=== PATIENT | male | born 1945 | race Caucasian/White ===

== ENCOUNTER 2020-06-08 18:38 | Inpatient (IN) | payer MEDICARE ==
[~2020-06-08] VITALS: Ht 170.2 cm; Wt 54.4 kg
[2020-06-08 19:23] LABS: BASOPHILS % (AUTO) 0.3 % (0.0-5.0); EOSINOPHILS % (AUTO) 0.2 % (0.0-8.0); HEMATOCRIT 37.6 % (42-54); LYMPHOCYTES % (AUTO) 4.5 % (21.0-51.0); MEAN CORPUSCULAR HEMOGLOBIN 29.4 pg (27.0-33.0); MEAN CORPUSCULAR HGB CONC 32.7 g/dL (32.0-36.0); MONOCYTES % (AUTO) 3.9 % (3.0-13.0); NEUTROPHILS % (AUTO) 90.7 % (40.0-77.0); PLATELET COUNT (AUTO) 317 K/uL (130-400); RED BLOOD CELL COUNT(AUTO) 4.18 MIL/uL (4.50-6.20); RED CELL DISTRIBUTION WIDTH 14.3 % (11.0-15.5); WHITE BLOOD COUNT (AUTO) 17.7 K/uL (4.8-10.8)
[2020-06-08] MEDS ORDERED: MORPHINE 2 MG SYG ONE ×2 (19:42→20:32)
[2020-06-08] MEDS ORDERED: ONDANSETRON 4MG INJ ONE ×2 (19:42→22:24)
[2020-06-08] MEDS ORDERED: 0.9% NACL 500ML IV.SOLN 500 ML IV ONE (19:43)
[2020-06-08 20:12] LABS: CREATININE 2.1 mg/dL (0.5-1.5); POTASSIUM 4.6 mmol/L (3.5-5.1)
[2020-06-08 20:17] LABS: ALBUMIN 3.4 g/dL (3.5-5.0); BILIRUBIN,TOTAL 0.5 mg/dL (0.2-1.0); TOTAL PROTEIN, SERUM 8.1 g/dL (6.0-8.3)
[2020-06-08] MEDS ORDERED: ZOSYN 3.375GM+NS 50ML 50 ML IV ONE (22:17)
[2020-06-08] MEDS ORDERED: METOCLOPRAMIDE 10 MG/2 ML VIAL ONE (22:32)
[2020-06-08] MEDS ORDERED: LORAZEPAM 2 MG/ML 1 ML VIAL ONE (22:50)
[2020-06-08] MEDS ORDERED: LIDOCAINE HCL 2% VISCOUS 15 ML UDCUP ONE (22:50)
[2020-06-09] MEDS ORDERED: MORPHINE 4 MG SYG IV PRN (01:00)
[2020-06-09] MEDS: METOPROLOL TARTRATE 1 MG/ML 5ML VIAL IV SCH ×4 (01:00→19:00)
[2020-06-09] MEDS: 0.9%NACL 1000ML 1,000 ML IV SCH ×4 (01:00→21:16)
[2020-06-09] MEDS ORDERED: MORPHINE 2 MG SYG IV PRN (01:00)
[2020-06-09 02:00] LABS: CRP QUANTITATIVE 15.2 mg/L (0.00-9.0)
[2020-06-09] MEDS ORDERED: METOCLOPRAMIDE 10 MG/2 ML VIAL ONE ×3 (05:21→19:28)
[2020-06-09] MEDS ORDERED: METOPROLOL TARTRATE 1 MG/ML 5ML VIAL IV ONE ×2 (05:21→12:38)
[2020-06-09 05:55] LABS: INR 0.98 (0.85-1.15); PROTHROMBIN TIME 10.7 SEC (9.6-11.6)
[2020-06-09 05:56] LABS: PARTIAL THROMBOPLASTIN TIME 25.7 SEC (26.3-35.5)
[2020-06-09] MEDS: METOCLOPRAMIDE 10 MG/2 ML VIAL IVP SCH ×3 (06:00→18:00)
[2020-06-09] MEDS: LEVOTHYROXINE 100MCG VIAL IV SCH (06:30)
[2020-06-09] MEDS: LUBIPROSTONE 24 MCG CAP PO SCH ×2 (08:00→17:00)
[2020-06-09] MEDS: FAMOTIDINE 20MG VIAL IV SCH (09:00)
[2020-06-09] MEDS: ENOXAPARIN SODIUM 30 MG/0.3 ML SQ SCH (09:00)
[2020-06-09] MEDS: ZOSYN 3.375GM+NS 50ML 50 ML IV SCH ×2 (09:00→21:16)
[2020-06-09] MEDS ORDERED: ZOSYN 3.375GM+NS 50ML 50 ML IV ONE (09:54)
[2020-06-09] MEDS ORDERED: ENOXAPARIN SODIUM 30 MG/0.3 ML SQ ONE (09:55)
[2020-06-09] MEDS ORDERED: FAMOTIDINE 20MG VIAL IV ONE (09:55)
[2020-06-09] MEDS ORDERED: MAGNESIUM CITRATE 296 ML SOLUTION ONE ×2 (11:40→18:07)
[2020-06-09] MEDS ORDERED: MORPHINE 2 MG SYG ONE ×2 (13:05→19:28)
[2020-06-09 19:50] VITALS: BP 168/87
[2020-06-09 23:31] VITALS: BP 118/68
[2020-06-10] MEDS: METOPROLOL TARTRATE 1 MG/ML 5ML VIAL IV SCH ×4 (00:37→17:28)
[2020-06-10] MEDS: METOCLOPRAMIDE 10 MG/2 ML VIAL IVP SCH ×4 (00:37→17:28)
[2020-06-10 04:00] VITALS: BP 117/62
[2020-06-10] MEDS: LEVOTHYROXINE 100MCG VIAL IV SCH (06:06)
[2020-06-10] MEDS: 0.9%NACL 1000ML 1,000 ML IV SCH (06:10)
[2020-06-10 06:54] LABS: HEMATOCRIT 29.1 % (42-54); MEAN CORPUSCULAR HEMOGLOBIN 29.7 pg (27.0-33.0); MEAN CORPUSCULAR HGB CONC 31.6 g/dL (32.0-36.0); MEAN CORPUSCULAR VOLUME 93.9 fL (79-99); PLATELET COUNT (AUTO) 219 K/uL (130-400); RED CELL DISTRIBUTION WIDTH 14.8 % (11.0-15.5); WHITE BLOOD COUNT (AUTO) 6.6 K/uL (4.8-10.8)
[2020-06-10 07:12] LABS: ALBUMIN 2.2 g/dL (3.5-5.0); BILIRUBIN,TOTAL 0.3 mg/dL (0.2-1.0); CREATININE 1.5 mg/dL (0.5-1.5); POTASSIUM 3.6 mmol/L (3.5-5.1); TOTAL PROTEIN, SERUM 5.9 g/dL (6.0-8.3)
[2020-06-10 08:39] VITALS: BP 152/77
[2020-06-10 08:41] LABS: EOSINOPHILS % (MANUAL) 3 % (1-6); LYMPHOCYTES % (MANUAL) 11 % (22-44); MAN.DIFF COMMENT-IMPRESSION MANUAL DIFFERENTIAL; MONOCYTES % (MANUAL) 1 % (2-9); SEGMENTED NEUTROPHILS % 85 % (40-70)
[2020-06-10 08:42] LABS: PLATELET MORPHOLOGY COMMENT ADEQUATE
[2020-06-10] MEDS: ZOSYN 3.375GM+NS 50ML 50 ML IV SCH ×2 (09:18→21:40)
[2020-06-10] MEDS: FAMOTIDINE 20MG VIAL IV SCH (09:23)
[2020-06-10] MEDS: LUBIPROSTONE 24 MCG CAP PO SCH ×2 (09:23→17:26)
[2020-06-10] MEDS: ENOXAPARIN SODIUM 30 MG/0.3 ML SQ SCH (09:24)
[2020-06-10 12:00] VITALS: BP 152/78
[2020-06-10 16:27] VITALS: BP 137/87
[2020-06-10 19:50] VITALS: BP 126/66
[2020-06-10 23:15] VITALS: BP 155/80
[2020-06-11] MEDS: METOPROLOL TARTRATE 1 MG/ML 5ML VIAL IV SCH ×2 (00:44→06:42)
[2020-06-11] MEDS: METOCLOPRAMIDE 10 MG/2 ML VIAL IVP SCH ×2 (00:44→06:33)
[2020-06-11 04:03] VITALS: BP 134/72
[2020-06-11] MEDS ORDERED: LEVOTHYROXINE 100 MCG TABLET ONE (06:31)
[2020-06-11] MEDS ORDERED: METOPROLOL TARTRATE 1 MG/ML 5ML VIAL IV PRN (07:15)
[2020-06-11 08:53] VITALS: BP 164/80
[2020-06-11] MEDS ORDERED: FAMOTIDINE 20MG TAB PO SCH (09:00)
[2020-06-11] MEDS: LUBIPROSTONE 24 MCG CAP PO SCH ×2 (10:18→15:41)
[2020-06-11] MEDS: ZOSYN 3.375GM+NS 50ML 50 ML IV SCH (10:18)
[2020-06-11] MEDS: ENOXAPARIN SODIUM 30 MG/0.3 ML SQ SCH (10:19)
[2020-06-11] MEDS ORDERED: METOCLOPRAMIDE 5 MG TABLET ONE (10:38)
[2020-06-11] MEDS: METOCLOPRAMIDE 5 MG TABLET PO SCH ×2 (11:58→15:41)
[2020-06-11] MEDS ORDERED: SENEKOT PO (12:06)
[2020-06-11] MEDS ORDERED: METO25TA6 PO (12:06)
[2020-06-11] MEDS ORDERED: LEVO137C4 PO (12:06)
[2020-06-11] MEDS ORDERED: AMLO-258 PO (12:06)
[2020-06-11] MEDS ORDERED: MAGN250T10 PO (12:06)
[2020-06-11] MEDS ORDERED: MULT-1367 PO (12:06)
[2020-06-11] MEDS ORDERED: LOVA40TA2 PO (12:06)
[2020-06-11] MEDS ORDERED: CLOP75TA14 PO (12:06)
[2020-06-11] MEDS ORDERED: CILO100T PO (12:06)
[2020-06-11] MEDS ORDERED: FERR325T22 PO (12:06)
[2020-06-11] MEDS ORDERED: EZET10TA48 PO (12:06)
[2020-06-11] MEDS ORDERED: UBID100C45 PO (12:06)
[2020-06-11 12:14] VITALS: BP 153/76
[2020-06-11] MEDS ORDERED: CEFD300C3 PO (12:58)
== END 2020-06-11 17:30 | disposition home or self-care (01) | DRG 389 ==
LOC: EDH 18:38 → EDHIP 06-09 00:58 → 3CH 06-09 19:42
PROVIDERS: ADMIT Internal Medicine; ATTEND Internal Medicine
PROC: 0D9670Z Drainage of Stomach with Drainage Device, Via Natural or Artificial Opening (ICD-10-PCS; principal; 2020-06-09)
DX: K56.609 Unspecified intestinal obstruction, unspecified as to partial versus complete obstruction (principal); N17.9 Acute kidney failure, unspecified; E87.1 Hypo-osmolality and hyponatremia; E44.0 Moderate protein-calorie malnutrition; E87.6 Hypokalemia; E86.1 Hypovolemia; Z20.822 Contact with and (suspected) exposure to COVID-19; D72.829 Elevated white blood cell count, unspecified; E03.9 Hypothyroidism, unspecified; E78.5 Hyperlipidemia, unspecified; I11.9 Hypertensive heart disease without heart failure; I70.0 Atherosclerosis of aorta; K59.09 Other constipation; I73.9 Peripheral vascular disease, unspecified; N40.0 Benign prostatic hyperplasia without lower urinary tract symptoms; Z79.02 Long term (current) use of antithrombotics/antiplatelets; Z79.82 Long term (current) use of aspirin; Z79.899 Other long term (current) drug therapy; Z87.891 Personal history of nicotine dependence
CPT/HCPCS: 36415; 71045; 74018; 74176; 76770; 80053; 82150; 83605; 83690; 84145; 85025; 85378; 85610; 85730; 86140; 87040; 87426; 93005; 99291; G0378; J1650; J2060; J2405; J2543; J2765; J3490; J7030; J7040; U0003

== ENCOUNTER 2021-08-07 12:33 | Inpatient (IN) | payer MEDICARE ==
[~2021-08-07] VITALS: Ht 162.6 cm; Wt 57.3 kg
[~2021-08-07 12:33] MED LIST: AMLO-258 PO; CEFD300C3 PO; CILO100T PO; CLOP75TA14 PO; EZET10TA48 PO; FERR325T22 PO; LEVO137C4 PO; LOVA40TA2 PO; MAGN250T10 PO; METO25TA6 PO; MULT-1367 PO; SENEKOT PO; UBID100C45 PO
[2021-08-07] MEDS ORDERED: 0.9%NACL 1000ML 1,000 ML IV ONE (13:00)
[2021-08-07 13:11] LABS: BASOPHILS % (AUTO) 0.2 % (0.0-5.0); HEMATOCRIT 45.3 % (42-54); LYMPHOCYTES % (AUTO) 5.7 % (21.0-51.0); MEAN CORPUSCULAR HGB CONC 33.1 g/dL (32.0-36.0); MEAN CORPUSCULAR VOLUME 93.6 fL (79-99); MONOCYTES % (AUTO) 6.5 % (3.0-13.0); NEUTROPHILS % (AUTO) 87.2 % (40.0-77.0); PLATELET COUNT (AUTO) 270 K/uL (130-400); RED BLOOD CELL COUNT(AUTO) 4.84 MIL/uL (4.50-6.20); WHITE BLOOD COUNT (AUTO) 14.5 K/uL (4.8-10.8)
[2021-08-07] MEDS ORDERED: ONDANSETRON 4MG INJ IVP ONE (13:30)
[2021-08-07] MEDS ORDERED: MORPHINE 4 MG SYG IVP ONE (13:30)
[2021-08-07 13:33] LABS: CARBON DIOXIDE 42 mmol/L (21-32); CHLORIDE 93 mmol/L (101-111); CREATININE 2.2 mg/dL (0.5-1.5); GLOMERULAR FILTR. RATE CALC 31 mL/min (>60); GLUCOSE,RANDOM 192 mg/dL (70-105); POTASSIUM 4.2 mmol/L (3.5-5.1); SODIUM SERUM 140 mmol/L (136-145); UREA NITROGEN, BLOOD 27 mg/dL (7-18)
[2021-08-07 13:37] LABS: ALANINE AMINOTRANSFERASE 21 U/L (12-78); ALBUMIN 2.9 g/dL (3.5-5.0); ASPARTATE AMINOTRANSFERASE 27 U/L (10-37); BILIRUBIN,TOTAL 0.4 mg/dL (0.2-1.0)
[2021-08-07 13:48] LABS: LIPASE < 50 U/L (114-286)
[2021-08-07] MEDS ORDERED: IOHEXOL-350 75 ML VIAL IV ONE (14:33)
[2021-08-07] MEDS ORDERED: LIDOCAINE HCL 2% VISCOUS 15 ML UDCUP ONE (15:46)
[2021-08-07] MEDS ORDERED: DIATR MEGLU/DIATRIZOATE SODIUM 30 ML BOTTLE ONE (16:14)
[2021-08-07] MEDS ORDERED: ONDANSETRON 4MG INJ IV PRN (16:30)
[2021-08-07] MEDS: ZOSYN 3.375GM +NS 50ML IV SCH (16:44)
[2021-08-07] MEDS: 0.9%NACL 1000ML 1,000 ML IV SCH (16:44)
[2021-08-07] MEDS: FAMOTIDINE 20MG VIAL IV SCH (16:44)
[2021-08-07] MEDS ORDERED: METO25TA6 PO (17:26)
[2021-08-07] MEDS ORDERED: LEVO-173 PO (17:26)
[2021-08-07] MEDS ORDERED: PANT40TA54 PO (17:35)
[2021-08-07] MEDS ORDERED: CLOP75TA32 PO (17:36)
[2021-08-07] MEDS ORDERED: LOVA40TA2 PO (17:36)
[2021-08-07] MEDS ORDERED: POLY17PO4 PO (17:37)
[2021-08-07] MEDS ORDERED: FERR159T2 PO (17:38)
[2021-08-07] MEDS: MORPHINE 2 MG SYG IV PRN (17:56)
[2021-08-07] MEDS ORDERED: LABETALOL 20MG VIAL IV ONE (18:00)
[2021-08-07 18:30] VITALS: BP 143/76
[2021-08-07 19:26] VITALS: BP 144/75
[2021-08-07] MEDS ORDERED: METOPROLOL TARTRATE 25 MG TAB PO SCH (21:00)
[2021-08-07 23:28] VITALS: BP 118/70
[2021-08-08] MEDS: 0.9%NACL 1000ML 1,000 ML IV SCH ×3 (02:36→22:00)
[2021-08-08 03:40] VITALS: BP 114/66
[2021-08-08] MEDS: MORPHINE 2 MG SYG IV PRN ×4 (04:24→20:55)
[2021-08-08] MEDS: ZOSYN 3.375GM +NS 50ML IV SCH ×3 (04:25→20:51)
[2021-08-08 04:29] LABS: APPEARANCE,URINE Clear (CLEAR); BILIRUBIN,URINE Negative (NEGATIVE); COLOR,URINE Yellow (YELLOW); GLUCOSE, URINE (UA) TRACE mg/dL (NEGATIVE); KETONES,URINE Negative (NEGATIVE); LEUKOCYTE ESTERASE ,URINE Negative (NEGATIVE); NITRATE,URINE Negative (NEGATIVE); OCCULT BLOOD,URINE Negative (NEGATIVE); PROTEIN,URINE >=1000 mg/dL (NEGATIVE); UROBILINOGEN,URINE 0.2 mg/dL (0.2-1.0)
[2021-08-08 04:30] LABS: CHLORIDE,URINE RANDOM 28 mmol/L (110-250); POTASSIUM,URINE RANDOM 61 mmol/L (25-125); SODIUM,URINE RANDOM 22 mmol/l (40-220)
[2021-08-08 04:47] LABS: BASOPHILS % (AUTO) 0.4 % (0.0-5.0); EOSINOPHILS % (AUTO) 1.3 % (0.0-8.0); LYMPHOCYTES % (AUTO) 6.5 % (21.0-51.0); MEAN CORPUSCULAR HEMOGLOBIN 30.6 pg (27.0-33.0); MEAN CORPUSCULAR HGB CONC 31.5 g/dL (32.0-36.0); MEAN CORPUSCULAR VOLUME 97.4 fL (79-99); MONOCYTES % (AUTO) 8.7 % (3.0-13.0); NEUTROPHILS % (AUTO) 82.7 % (40.0-77.0); PLATELET COUNT (AUTO) 227 K/uL (130-400); RED BLOOD CELL COUNT(AUTO) 4.21 MIL/uL (4.50-6.20); RED CELL DISTRIBUTION WIDTH 15.7 % (11.0-15.5); WHITE BLOOD COUNT (AUTO) 11.1 K/uL (4.8-10.8)
[2021-08-08 04:53] LABS: INR 0.93 (0.85-1.15); PROTHROMBIN TIME 10.2 SEC (9.6-11.6)
[2021-08-08 04:54] LABS: PARTIAL THROMBOPLASTIN TIME 26.6 SEC (26.3-35.5)
[2021-08-08 05:13] LABS: ALBUMIN 2.2 g/dL (3.5-5.0); BILIRUBIN,TOTAL 0.4 mg/dL (0.2-1.0); CREATININE 2.2 mg/dL (0.5-1.5); MAGNESIUM 3.1 mg/dL (1.80-2.40); PHOSPHORUS 4.4 mg/dL (2.5-4.9); POTASSIUM 3.6 mmol/L (3.5-5.1); TOTAL PROTEIN, SERUM 6.1 g/dL (6.0-8.3); URIC ACID 7.4 mg/dL (2.6-7.2)
[2021-08-08 06:02] LABS: ERYTHROCYTE SEDIMENTATION RATE 55 MM/HR (0-20)
[2021-08-08 08:00] VITALS: BP 131/72
[2021-08-08] MEDS ORDERED: METOPROLOL TARTRATE 1 MG/ML 5ML VIAL IV PRN (08:00)
[2021-08-08] MEDS ORDERED: ZOSYN 3.375GM +NS 50ML IV SCH (08:00)
[2021-08-08] MEDS: FAMOTIDINE 20MG VIAL IV SCH (08:31)
[2021-08-08] MEDS: THIAMINE HCL 100 MG/ML 2ML VIAL IVP SCH (08:31)
[2021-08-08 12:02] VITALS: BP 143/77
[2021-08-08 16:00] VITALS: BP 145/80
[2021-08-08 20:05] VITALS: BP 151/91
[2021-08-08 23:40] VITALS: BP 145/74
[2021-08-09] VITALS (22 sets, daily range): BP systolic 104–230; BP diastolic 57–108
[2021-08-09] MEDS: MORPHINE 2 MG SYG IV PRN ×2 (00:33→07:59)
[2021-08-09] MEDS: ZOSYN 3.375GM +NS 50ML IV SCH ×3 (04:03→22:37)
[2021-08-09] MEDS: 0.9%NACL 1000ML 1,000 ML IV SCH ×2 (04:30→07:30)
[2021-08-09 04:34] LABS: BASOPHILS % (AUTO) 0.6 % (0.0-5.0); EOSINOPHILS % (AUTO) 2.4 % (0.0-8.0); HEMATOCRIT 36.8 % (42-54); LYMPHOCYTES % (AUTO) 9.6 % (21.0-51.0); MEAN CORPUSCULAR HEMOGLOBIN 30.9 pg (27.0-33.0); MEAN CORPUSCULAR HGB CONC 31.3 g/dL (32.0-36.0); MEAN CORPUSCULAR VOLUME 98.9 fL (79-99); MONOCYTES % (AUTO) 8.6 % (3.0-13.0); NEUTROPHILS % (AUTO) 78.3 % (40.0-77.0); PLATELET COUNT (AUTO) 193 K/uL (130-400); RED BLOOD CELL COUNT(AUTO) 3.72 MIL/uL (4.50-6.20); RED CELL DISTRIBUTION WIDTH 15.6 % (11.0-15.5); WHITE BLOOD COUNT (AUTO) 8.6 K/uL (4.8-10.8)
[2021-08-09 04:52] LABS: ALBUMIN 1.9 g/dL (3.5-5.0); BILIRUBIN,TOTAL 0.4 mg/dL (0.2-1.0); CREATININE 1.4 mg/dL (0.5-1.5); MAGNESIUM 2.6 mg/dL (1.80-2.40); PHOSPHORUS 2.6 mg/dL (2.5-4.9); POTASSIUM 3.6 mmol/L (3.5-5.1); TOTAL PROTEIN, SERUM 5.4 g/dL (6.0-8.3)
[2021-08-09] MEDS: FAMOTIDINE 20MG VIAL IV SCH (07:30)
[2021-08-09] MEDS: THIAMINE HCL 100 MG/ML 2ML VIAL IVP SCH (07:30)
[2021-08-09] MEDS ORDERED: LIDOCAINE PF 100MG/5ML (2%) SYRINGE 5ML ONE (19:03)
[2021-08-09] MEDS ORDERED: SUCCINYLCHOLINE 200MG/10ML SYR ONE (19:03)
[2021-08-09] MEDS ORDERED: ONDANSETRON 4MG INJ ONE (19:03)
[2021-08-09] MEDS ORDERED: PROPOFOL 10 MG/ML 20ML VIAL IV ONE (19:03)
[2021-08-09] MEDS ORDERED: ROCURONIUM 10MG/1ML SYR 10 MG/ML ML ONE (19:04)
[2021-08-09] MEDS ORDERED: FENTANYL CITRATE PF 50 MCG/1 ML 2ML VIAL ONE (19:05)
[2021-08-09] MEDS ORDERED: BUPIVACAINE/EPI/PF 0.5% 30ML VIAL IJ ONE (19:47)
[2021-08-09] MEDS ORDERED: SUGAMMADEX SODIUM 200 MG/2 ML VIAL IV ONE (19:56)
[2021-08-09] MEDS ORDERED: ENALAPRILAT DIHYDRATE 1.25MG/ML 1ML VIAL IV ONE (20:16)
[2021-08-09] MEDS: LACTATED RINGERS 1000ML 1,000 ML IV SCH (20:30)
[2021-08-09] MEDS ORDERED: ONDANSETRON 4MG INJ IVP PRN (20:30)
[2021-08-09] MEDS ORDERED: LABETALOL 20MG SYG IV ONE (20:55)
[2021-08-09] MEDS: MEPERIDINE-PF 25 MG/ML SYG IV PRN (22:41)
[2021-08-10] VITALS (10 sets, daily range): BP systolic 97–165; BP diastolic 56–82
[2021-08-10] MEDS: ZOSYN 3.375GM +NS 50ML IV SCH ×3 (03:58→20:32)
[2021-08-10 04:17] LABS: BASOPHILS % (AUTO) 0.2 % (0.0-5.0); HEMATOCRIT 40.4 % (42-54); LYMPHOCYTES % (AUTO) 3.5 % (21.0-51.0); MEAN CORPUSCULAR HEMOGLOBIN 32.1 pg (27.0-33.0); MEAN CORPUSCULAR HGB CONC 31.7 g/dL (32.0-36.0); MEAN CORPUSCULAR VOLUME 101.3 fL (79-99); NEUTROPHILS % (AUTO) 94.7 % (40.0-77.0); PLATELET COUNT (AUTO) 203 K/uL (130-400); RED BLOOD CELL COUNT(AUTO) 3.99 MIL/uL (4.50-6.20); RED CELL DISTRIBUTION WIDTH 15.2 % (11.0-15.5); WHITE BLOOD COUNT (AUTO) 10.3 K/uL (4.8-10.8)
[2021-08-10 04:27] LABS: ALBUMIN 1.9 g/dL (3.5-5.0); BILIRUBIN,TOTAL 0.6 mg/dL (0.2-1.0); CREATININE 1.6 mg/dL (0.5-1.5); POTASSIUM 4.4 mmol/L (3.5-5.1); TOTAL PROTEIN, SERUM 5.7 g/dL (6.0-8.3)
[2021-08-10] MEDS: 0.9%NACL 1000ML 1,000 ML IV SCH (04:30)
[2021-08-10] MEDS: LACTATED RINGERS 1000ML 1,000 ML IV SCH ×2 (07:20→22:13)
[2021-08-10] MEDS: FAMOTIDINE 20MG VIAL IV SCH (07:51)
[2021-08-10] MEDS: THIAMINE HCL 100 MG/ML 2ML VIAL IVP SCH (07:51)
[2021-08-10] MEDS: MEPERIDINE-PF 25 MG/ML SYG IV PRN ×2 (15:03→23:37)
[2021-08-11 03:59] LABS: BASOPHILS % (AUTO) 0.1 % (0.0-5.0); EOSINOPHILS % (AUTO) 0.2 % (0.0-8.0); HEMATOCRIT 34.2 % (42-54); LYMPHOCYTES % (AUTO) 9.3 % (21.0-51.0); MEAN CORPUSCULAR HEMOGLOBIN 30.9 pg (27.0-33.0); MEAN CORPUSCULAR HGB CONC 31.9 g/dL (32.0-36.0); MEAN CORPUSCULAR VOLUME 96.9 fL (79-99); MONOCYTES % (AUTO) 7.6 % (3.0-13.0); NEUTROPHILS % (AUTO) 82.4 % (40.0-77.0); PLATELET COUNT (AUTO) 199 K/uL (130-400); RED BLOOD CELL COUNT(AUTO) 3.53 MIL/uL (4.50-6.20); RED CELL DISTRIBUTION WIDTH 15.3 % (11.0-15.5); WHITE BLOOD COUNT (AUTO) 10.9 K/uL (4.8-10.8)
[2021-08-11 04:00] VITALS: BP 138/75
[2021-08-11 04:23] LABS: ALBUMIN 1.8 g/dL (3.5-5.0); BILIRUBIN,TOTAL 0.3 mg/dL (0.2-1.0); CREATININE 1.4 mg/dL (0.5-1.5); POTASSIUM 4.2 mmol/L (3.5-5.1); TOTAL PROTEIN, SERUM 5.2 g/dL (6.0-8.3)
[2021-08-11] MEDS: ZOSYN 3.375GM +NS 50ML IV SCH ×3 (04:42→20:33)
[2021-08-11 07:00] VITALS: BP_SYST 120; BP_SYST 184; BP_DIAS 68; BP_DIAS 91
[2021-08-11] MEDS: FAMOTIDINE 20MG VIAL IV SCH (09:01)
[2021-08-11] MEDS: THIAMINE HCL 100 MG/ML 2ML VIAL IVP SCH (09:02)
[2021-08-11] MEDS: DOCUSATE SODIUM 100 MG CAP PO SCH (09:04)
[2021-08-11] MEDS: LACTATED RINGERS 1000ML 1,000 ML IV SCH ×2 (09:22→20:35)
[2021-08-11 11:00] VITALS: BP 192/90
[2021-08-11] MEDS ORDERED: 0.9%NACL 50ML 50 ML IV ONE (11:37)
[2021-08-11] MEDS: NIFEDIPINE ER 30 MG TAB PO SCH (11:38)
[2021-08-11] MEDS: FERROUS SULFATE 325 MG TABLET.DR PO SCH (11:38)
[2021-08-11 15:33] VITALS: BP 176/91
[2021-08-11 16:00] VITALS: BP 184/93
[2021-08-11] MEDS ORDERED: NIFEDIPINE ER 30 MG TAB PO SCH (17:25)
[2021-08-11 19:33] VITALS: BP 125/67
[2021-08-11] MEDS ORDERED: SIMVASTATIN 20 MG TABLET PO SCH (21:00)
[2021-08-12 00:20] VITALS: BP 127/64
[2021-08-12 04:12] VITALS: BP 158/82
[2021-08-12] MEDS: ZOSYN 3.375GM +NS 50ML IV SCH ×2 (05:10→11:40)
[2021-08-12] MEDS ORDERED: LEVOTHYROXINE 125 MCG TABLET PO SCH (06:30)
[2021-08-12 06:50] LABS: BASOPHILS % (AUTO) 0.2 % (0.0-5.0); EOSINOPHILS % (AUTO) 2.8 % (0.0-8.0); HEMATOCRIT 38.4 % (42-54); LYMPHOCYTES % (AUTO) 11.9 % (21.0-51.0); MEAN CORPUSCULAR HEMOGLOBIN 31.1 pg (27.0-33.0); MEAN CORPUSCULAR HGB CONC 32.3 g/dL (32.0-36.0); MEAN CORPUSCULAR VOLUME 96.2 fL (79-99); PLATELET COUNT (AUTO) 179 K/uL (130-400); RED BLOOD CELL COUNT(AUTO) 3.99 MIL/uL (4.50-6.20); RED CELL DISTRIBUTION WIDTH 14.7 % (11.0-15.5); WHITE BLOOD COUNT (AUTO) 8.9 K/uL (4.8-10.8)
[2021-08-12 07:08] LABS: ALBUMIN 1.8 g/dL (3.5-5.0); BILIRUBIN,TOTAL 0.4 mg/dL (0.2-1.0); CREATININE 1.1 mg/dL (0.5-1.5); POTASSIUM 3.5 mmol/L (3.5-5.1); TOTAL PROTEIN, SERUM 5.5 g/dL (6.0-8.3)
[2021-08-12 07:33] VITALS: BP 157/87
[2021-08-12] MEDS ORDERED: EZETIMIBE 10 MG TAB PO SCH (09:00)
[2021-08-12] MEDS: FAMOTIDINE 20MG VIAL IV SCH (09:28)
[2021-08-12] MEDS ORDERED: AMOX-426 PO (09:28)
[2021-08-12] MEDS: THIAMINE HCL 100 MG/ML 2ML VIAL IVP SCH (09:28)
[2021-08-12] MEDS: FERROUS SULFATE 325 MG TABLET.DR PO SCH (09:28)
[2021-08-12] MEDS: NIFEDIPINE ER 30 MG TAB PO SCH (09:28)
[2021-08-12] MEDS: DOCUSATE SODIUM 100 MG CAP PO SCH (09:28)
[2021-08-12 11:48] VITALS: BP 166/100
[2021-08-12] MEDS ORDERED: NIFEDIPINE ER 30 MG TAB PO SCH (12:30)
[2021-08-12 14:33] VITALS: BP 143/82
[2021-08-12] MEDS ORDERED: NIFE-40 PO (14:35)
[2021-08-12] MEDS ORDERED: ACET-2079 PO (14:35)
[2021-08-13] MEDS ORDERED: NIFEDIPINE ER 30 MG TAB PO SCH (09:00)
== END 2021-08-12 16:08 | disposition home or self-care (01) | DRG 335 ==
LOC: EDH 12:33 → EDHIP 16:24 → 4DH 18:38 → 2AH 08-10 21:47
PROVIDERS: ADMIT Hospitalist; ATTEND Hospitalist
PROC: 0D9670Z Drainage of Stomach with Drainage Device, Via Natural or Artificial Opening (ICD-10-PCS; 2021-08-07)
PROC: 0DNU0ZZ Release Omentum, Open Approach (ICD-10-PCS; 2021-08-09)
PROC: 0DNV0ZZ Release Mesentery, Open Approach (ICD-10-PCS; principal; 2021-08-09 19:05)
DX: K56.2 Volvulus (principal); N17.0 Acute kidney failure with tubular necrosis; D72.829 Elevated white blood cell count, unspecified; E03.9 Hypothyroidism, unspecified; E78.00 Pure hypercholesterolemia, unspecified; E78.5 Hyperlipidemia, unspecified; E86.1 Hypovolemia; I10 Essential (primary) hypertension; I73.9 Peripheral vascular disease, unspecified; D64.9 Anemia, unspecified; Z95.1 Presence of aortocoronary bypass graft; Z90.49 Acquired absence of other specified parts of digestive tract; Z87.891 Personal history of nicotine dependence; K21.9 Gastro-esophageal reflux disease without esophagitis; K59.09 Other constipation; I25.10 Atherosclerotic heart disease of native coronary artery without angina pectoris
CPT/HCPCS: 36415; 74018; 74177; 80053; 81003; 82436; 82948; 83690; 83735; 83935; 84100; 84133; 84145; 84300; 84484; 84550; 85025; 85610; 85651; 85730; 87040; 93005; 97039; A4344; G0378; J0330; J2001; J2175; J2270; J2405; J2543; J2704; J3010; J3411; J3490; J7030; J7120; Q9963; Q9967